=== PATIENT | male | born 1960 ===

== ENCOUNTER → 2024-03-12 | Outpatient (REF) | payer OTHER ==
[2024-03-12 18:29] LABS: PERCENT SATURATION 29.1 % (19.7-50.0); PHOSPHORUS LEVEL 3.1 MG/DL (2.4-5.1)
[2024-03-12 18:31] LABS: FOLATE 21.5 NG/ML (>5.4)
[2024-03-12 18:32] LABS: TOTAL 25(OH) VITAMIN D 38.3 NG/ML (20.0-100.0)
== END ==
LOC: M LAB REF 16:38
PROVIDERS: ATTEND Internal Medicine
DX: Z98.84 Bariatric surgery status (principal)